=== PATIENT | male | born 1950 | race Caucasian/White ===

== ENCOUNTER 2017-11-20 06:51 | Day surgery (SDC) | payer MEDICARE ==
[2016-05-30 10:04] VITALS: BMI 31.9
[2017-11-20] MEDS ORDERED: Propofol 10 mg/ml Inj (20 ML) ONE (08:19)
--- NOTE | 2017-11-20 08:28 | CP.SDSHP ---
Same Day Surgery H & P - Previous Medical/Surgical History Cardiac: Hypertension Endocrine/Metabolic: Other - Allergies Allergies: Allergies No Known Allergies Allergy (Verified 05/30/16 10:03) - Physical Exam General Appearance: n Vital Signs: Vital Signs 11/20/17 07:19 Temperature 97.1 F L Pulse Rate 43 L Respiratory 18 Rate Blood Pressure 139/75 O2 Sat by Pulse 99 Oximetry Mental Status: Alert & Oriented x3 Neuro: WNL Heart: Other Lungs: WNL GI: WNL - {Optional Preform as Required} Breast: WNL Abdomen: WNL Rectal: Other Integument: WNL : WNL Ortho: WNL ENT: WNL - Impression Pt. Evaluated Today:Candidate for Anesthesia & Procedure: Yes - Date & Time Time: 08:28 Short Stay Discharge - Short Stay Discharge Admitting Diagnosis/Reason for Visit: ENCOUNTER FOR SCREENING FOR MALIGNANT NEOPLASM OF Disposition: HOME/ ROUTINE
[2017-11-20 09:03] VITALS: TEMP 98.5
[2017-11-20 09:13] VITALS: RESP 12
[2017-11-20] MEDS: Belladonna-Phenobarbital PO ONE ×2 (09:30→09:35)
[2017-11-20 10:43] VITALS: BP 133/74; PULSE 50; O2SAT 100
== END 2017-11-20 10:00 | disposition home or self-care (01) ==
LOC: C.ENDO 06:51
PROVIDERS: ATTEND Specialist
DX: Z12.11 Encounter for screening for malignant neoplasm of colon (principal); K64.4 Residual hemorrhoidal skin tags; K64.8 Other hemorrhoids; K58.9 Irritable bowel syndrome, unspecified; I10 Essential (primary) hypertension; D12.4 Benign neoplasm of descending colon; K63.5 Polyp of colon
CPT/HCPCS: 45385; 88305; J2704